=== PATIENT | male | born 1980 | race Two or more races ===

== ENCOUNTER 2017-01-14 15:33 | Inpatient (IN) | payer OTHER ==
[~2017-01-14] VITALS: Ht 185.4 cm; Wt 54.4 kg
--- NOTE | 2017-01-14 15:48 | NUR ---
PT AMBULATORY TO ER BED 12 C/O GENERALIZED WEAKNESS. NAUSEA AND DIARRHEA X 2 WEEKS NOW WORST TODAY. 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 AAOX3 GOWNED AND PLACED ON MONITOR. AWAITING MD CRENSHAW.
--- NOTE | 2017-01-14 15:55 | NUR ---
JAMEEL GORDILLO AT BEDSIDE FOR EVAL.
[2017-01-14] MEDS ORDERED: ONDANSETRON HCL/PF 4 MG/2 ML VIAL IVP ONE (16:00)
[2017-01-14] MEDS ORDERED: IBUPROFEN 600 MG TABLET PO ONE (16:00)
[2017-01-14] MEDS ORDERED: IV NS 0.9% 1,000 ML BAG IV ONE ×2 (16:00→17:00)
--- NOTE | 2017-01-14 16:01 | NUR ---
SKID WRAPPER AT BEDSIDE FOR BLOOD DRAW.
[2017-01-14] MEDS ORDERED: ACETAMINOPHEN ES 500 MG TABLET ONE (16:02)
[2017-01-14] MEDS ORDERED: IV NS 0.9% 1,000 ML ONE ×3 (16:02→19:23)
[2017-01-14] MEDS ORDERED: ONDANSETRON HCL/PF 4 MG/2 ML VIAL ONE (16:02)
[2017-01-14] MEDS ORDERED: IV SET PRIMARY 1 EA INFUS.SET MC ONE ×3 (16:02→19:23)
--- NOTE | 2017-01-14 16:13 | NUR ---
Britton funes in [facility] - 01/14/17 at 1724 by CINDI PT TO RADIOLOGY FOR ABDOMINAL CT SCAN VIA [facility].
[2017-01-14 16:18] LABS: BASOPHILS # (AUTO) 0.1 /CMM (0.0-0.2); BASOPHILS % (AUTO) 1.2 % (0.0-2.0); EOSINOPHILS % (AUTO) 0.1 % (0.0-6.0); LYMPHOCYTES # (AUTO) 0.2 /CMM (0.8-4.8); LYMPHOCYTES % (AUTO) 2.2 % (20.0-44.0); MEAN CORPUSCULAR HEMOGLOBIN 29 PG (26.0-33.0); MEAN CORPUSCULAR HGB CONC 34 g/dl (31.0-36.0); MEAN CORPUSCULAR VOLUME 87 fL (80-96); MONOCYTES # (AUTO) 0.1 /CMM (0.1-1.30); MONOCYTES % (AUTO) 0.8 % (2.0-12.0); NEUTROPHILS # (AUTO) 9.5 /CMM (1.8-8.9); NEUTROPHILS % (AUTO) 95.7 % (43.0-81.0); PLATELET COUNT (AUTO) 136 /CMM (150-450); RDW COEFFICIENT OF VARIATION 12.4 (11.5-15.0); RED BLOOD CELL COUNT(AUTO) 2.33 MIL/uL (4.5-6.0); WHITE BLOOD COUNT (AUTO) 9.9 K/uL (4.3-11.0)
[2017-01-14 16:19] LABS: HEMOGLOBIN 6.8 g/dL (13.5-17.5)
[2017-01-14 16:20] LABS: HEMATOCRIT 20 % (39-51)
[2017-01-14 16:29] LABS: INR 1.07 (0.87-1.13); PROTHROMBIN TIME 11.1 SECS (9.5-12.7)
[2017-01-14] MEDS ORDERED: ACETAMINOPHEN ES 500 MG TABLET PO ONE (16:30)
[2017-01-14 16:33] LABS: ALANINE AMINOTRANSFERASE 25 U/L (12-78); ALBUMIN 1.9 g/dL (3.4-5.0); ALKALINE PHOSPHATASE 108 U/L (46-116); ASPARTATE AMINOTRANSFERASE 35 U/L (15-37); BILIRUBIN,DIRECT 0.6 mg/dL (0.0-0.2); BILIRUBIN,TOTAL 1.1 mg/dL (0.2-1.0); CALCIUM, SERUM 7.8 mg/dL (8.5-10.1); CARBON DIOXIDE 19 mmol/L (21-32); CHLORIDE 97 mmol/L (98-107); CREATININE 4.9 mg/dL (0.6-1.3); GLUCOSE 335 mg/dL (74-106); SODIUM SERUM 131 mmol/L (136-145); TOTAL PROTEIN, SERUM 5.8 g/dL (6.4-8.2)
[2017-01-14 16:35] LABS: POTASSIUM 2.7 mmol/L (3.5-5.1); UREA NITROGEN, BLOOD 82 mg/dL (7-18)
[2017-01-14 16:45] LABS: BAND % (MANUAL) 7 % (0.0-5.0); LYMPHOCYTES % (MANUAL) 8 % (16-48); MONOCYTES % (MANUAL) 2 % (0-11.0); NEUTROPHILS % (MANUAL) 83 (42-76)
[2017-01-14 16:51] LABS: APPEARANCE,URINE Turbid (CLEAR); BILIRUBIN,URINE Negative (NEGATIVE); BLOOD, URINE Moderate Ery/uL (NEGATIVE); COLOR,URINE Yellow (YELLOW); KETONES,URINE Negative (NEGATIVE); LEUKOCYTE ESTERASE ,URINE Large (NEGATIVE); NITRITE, URINE Negative (NEGATIVE); PH,URINE 5.5 (5.0-8.0); PROTEIN,URINE 100 mg/dl (NEGATIVE); UGLUCOSE Negative (NEGATIVE); UROBILINOGEN,URINE 0.2 EU/dL (0.2)
[2017-01-14 17:02] LABS: BACTERIA,URINE Many /HPF (None Seen); RBC,URINE 21-50 /HPF (0-2); SQUAMOUS EPITHELIAL CELL,UR Many /HPF (None Seen); WBC,URINE TOO NUMEROUS TO COUN /HPF (0-3)
[2017-01-14] MEDS ORDERED: IV SET PRIMARY PUMP SET 1 EA INFUS.SET MC ONE ×3 (17:03→20:00)
[2017-01-14] MEDS ORDERED: POTASSIUM CL. PREMIX PERIPHER. 100 ML ONE (17:03)
--- NOTE | 2017-01-14 17:03 | NUR ---
PT GETTING CLEANED UP & USING RESTROOM BEFORE CT SCAN.
[2017-01-14] MEDS: POTASSIUM CL. PREMIX PERIPHER. 50 ML IV SCH ×2 (17:15→20:44)
--- NOTE | 2017-01-14 17:24 | NUR ---
PT TO RADIOLOGY FOR ABDOMINAL CT SCAN VIA [facility].
[2017-01-14] MEDS ORDERED: METRONIDAZOLE 500MG/ NS 100ML 100 ML IV ONE ×3 (17:30→21:50)
[2017-01-14] MEDS ORDERED: LEVOFLOXACIN 750 MG /D5W 150ML 150 ML IV ONE ×2 (17:30→17:37)
[2017-01-14] MEDS ORDERED: LIDOCAINE 2% JEL UROJET 10 ML MM ONE (18:19)
--- NOTE | 2017-01-14 18:34 | NUR ---
REPORT GIVEN TO DAINA CRAIN. PT AWAITING TRNASFER TO FLOOR.
--- NOTE | 2017-01-14 18:42 | NUR ---
PATIENT HAS [employer] [employer] INSURANCE PER [employer]
--- NOTE | 2017-01-14 18:49 | NUR ---
CALLED DR WHITE/ STRAP MACHINE OPERATOR IS [facility].
--- NOTE | 2017-01-14 19:02 | NUR ---
UNABLE TO INSERT F/C. PT IS HAVING A LOT OF PAIN STATING HE ONLY HAS MADRIGAL CATH AFTER SURGERY. DR INGRAM AWARE.
[2017-01-14] MEDS ORDERED: IV NS 0.9% 1,000 ML BAG IV PRN (19:30)
[2017-01-14 20:00] VITALS: BP 106/55
--- NOTE | 2017-01-14 20:00 | NUR ---
CRUZ RN INITIAL NOTE RECEIVED PT FROM ER VIA [facility]. NO ACUTE DISTRESS NOTED. PT A/O X4 AND ABLE TO MAKE NEEDS KNOWN. C/O OF SLIGHT PAIN 5/10 TO LOWER ABDOMEN. MOTRIN AND TYLENOL GIVEN IN ER. NO C/O OF NAUSEA,DIARRHEA OR VOMIT AT THIS TIME. ON ROOM AIR AND SATING WELL AT 98%. VITAL SIGNS BP-106/55, P-78, T- 98.2, R- 18. BODY ASSESSMENT PERFORMED. LUNG AND HEART SOUNDS AUSCULTATED. S1 & S2 NOTED. LUNGS CLEAR BILATERALLY. TELE- SINUS RHYTHM 70'S WITH ELEVATED T-WAVE. IV SITES R #20, L #18 CLEAN DRY, INTACT, PATENT AND FLUSHING WELL WITH NO S/SX OF INFECTION NOTED AT THIS TIME. ALL SAFETY MEASURES IN PLACE. CALL LIGHT WITHIN EASY REACH AT ALL TIMES. INFORMED ADDY GOVEA MD INFORMED OF ADMISSION AND AWAITING ORDERS. WILL CONTINUE TO MONITOR.
[2017-01-14] MEDS ORDERED: SECONDARY IV SET 1 EA INFUS.SET MC ONE ×2 (20:01→20:25)
[2017-01-14 20:15] VITALS: BP 106/55
[2017-01-14] MEDS ORDERED: POTASSIUM CHLORIDE 20 MEQ TAB.PRT.SR PO STA (21:10)
[2017-01-14] MEDS: METRONIDAZOLE 500MG/ NS 100ML 500 MG in PREMIX 1 EA IV SCH (21:26)
[2017-01-14] MEDS ORDERED: ONDANSETRON HCL/PF 4 MG/2 ML VIAL IVP PRN (21:30)
[2017-01-14] MEDS ORDERED: LEVOFLOXACIN 500 MG /D5W 100ML 500 MG in PREMIX 1 EA IV SCH (21:30)
[2017-01-14] MEDS ORDERED: ZOLPIDEM TARTRATE 5 MG TABLET PO PRN (21:30)
[2017-01-14] MEDS ORDERED: Z GUARD REMEDY 2 OZ OINT TP PRN (21:30)
[2017-01-14] MEDS ORDERED: Potassium Chloride 40 MEQ in IV D5/ 0.9% NACL 1,000 ML IV PRN (21:30)
[2017-01-14] MEDS ORDERED: IV PREMIX D5 NS + KCL 1,000 ML IV ONE (21:51)
[2017-01-14] MEDS ORDERED: POTASSIUM CHLORIDE 20 MEQ TAB.PRT.SR PO ONE (22:04)
[2017-01-14] MEDS ORDERED: HYDROMORPHONE 1 MG/1 ML DISP.SYRIN ONE (22:20)
[2017-01-14] MEDS ORDERED: HYDROMORPHONE INJ 2 MG/ML DISP.SYRIN ONE (22:29)
[2017-01-14] MEDS: HYDROMORPHONE INJ 2 MG/ML DISP.SYRIN IV PRN (22:33)
[2017-01-14] MEDS ORDERED: BLOOD IV SET 1 EA INFUS.SET MC ONE (22:49)
[2017-01-14] MEDS ORDERED: IV NS 0.9% 250 ML IV ONE (22:49)
[2017-01-14] MEDS ORDERED: ACETAMINOPHEN 325 MG TABLET ONE (23:11)
[2017-01-14] MEDS: ACETAMINOPHEN 325 MG TABLET PO PRN (23:15)
[2017-01-14 23:27] VITALS: BP 83/27
[2017-01-14 23:42] VITALS: BP 94/36
[2017-01-15] VITALS (11 sets, daily range): BP systolic 94–125; BP diastolic 36–59
[2017-01-15] MEDS ORDERED: BLOOD IV SET 1 EA INFUS.SET MC ONE (02:37)
[2017-01-15] MEDS ORDERED: IV NS 0.9% 250 ML IV ONE (02:37)
[2017-01-15] MEDS ORDERED: HYDROMORPHONE INJ 2 MG/ML DISP.SYRIN ONE (03:42)
[2017-01-15] MEDS: HYDROMORPHONE INJ 2 MG/ML DISP.SYRIN IV PRN (03:53)
[2017-01-15] MEDS ORDERED: ACETAMINOPHEN 325 MG TABLET ONE (04:54)
[2017-01-15] MEDS: ACETAMINOPHEN 325 MG TABLET PO PRN (05:08)
[2017-01-15] MEDS: METRONIDAZOLE 500MG/ NS 100ML 500 MG in PREMIX 1 EA IV SCH ×2 (05:08→14:03)
[2017-01-15] MEDS ORDERED: SECONDARY IV SET 1 EA INFUS.SET MC ONE ×2 (05:09→10:09)
--- NOTE | 2017-01-15 07:18 | NUR ---
RN INITIAL NOTES: Rec'd pt on bed, A/O x3, not in any distress. Pt on room air, no SOB noted. On telemonitor, . Pt has 2 IV line access both patent & intact w/ no signs of infection/ infiltration noted: R hand G20, SL and L AC G18, PL w/ D5NS 1L + 40 meqs KCL x 150 cc/hr infusing well. Provided comfort & safety measures. Bed kept low & in locked pos. Call light placed w/in reach. Will continue to monitor.
--- NOTE | 2017-01-15 07:24 | NUR ---
CRUZ RN CLOSING NOTE PT WITH EPISODES OF FEVER THROUGHOUT THE SHIFT. COOLING MEASURES PERFORMED AND TYLENOL WAS GIVEN. 2 UNITS OF PRBC'S GIVEN DURING THE SHIFT. NO REACTION NOTED AND BLOOD WELL TOLERATED.LAST VITAL SIGNS TAKEN T- 99.6, BP- 107/44, P- 101, RA SATING AT 100% AND NO C/O PAIN AT THIS TIME. ALL DUE MEDS GIVEN ORDERED AND WELL TOLERATED. PAIN MANAGED THROUGHOUT THE SHIFT. PT REMAINED WELL HYDRATED AND ALL NEEDS ATTENDED TO PROMPTLY. CALL LIGHT WITHIN EASY REACH. WILL ENDORSE TO NEXT SHIFT FOR [facility].
[2017-01-15 08:45] LABS: EOSINOPHILS % (AUTO) 0.1 % (0.0-6.0); HEMATOCRIT 26 % (39-51); HEMOGLOBIN 8.6 g/dL (13.5-17.5); LYMPHOCYTES # (AUTO) 0.4 /CMM (0.8-4.8); LYMPHOCYTES % (AUTO) 2.2 % (20.0-44.0); MEAN CORPUSCULAR HEMOGLOBIN 30 PG (26.0-33.0); MEAN CORPUSCULAR HGB CONC 34 g/dl (31.0-36.0); MEAN CORPUSCULAR VOLUME 88 fL (80-96); MONOCYTES # (AUTO) 0.4 /CMM (0.1-1.30); MONOCYTES % (AUTO) 2.1 % (2.0-12.0); NEUTROPHILS # (AUTO) 16.3 /CMM (1.8-8.9); NEUTROPHILS % (AUTO) 95.6 % (43.0-81.0); PLATELET COUNT (AUTO) 110 /CMM (150-450); RDW COEFFICIENT OF VARIATION 13.1 (11.5-15.0); RED BLOOD CELL COUNT(AUTO) 2.88 MIL/uL (4.5-6.0)
--- NOTE | 2017-01-15 08:45 | NUR ---
RN NOTES: Mg 1.2 and K 4.[address] Angel w/ orders to give 4 gm of Mg IV and to give plain IVF of D5NS 1L x 150 cc/hr if the pt doesn't have episode of diarrhea, carried out.
[2017-01-15 08:57] LABS: ALANINE AMINOTRANSFERASE 53 U/L (12-78); ALBUMIN 1.7 g/dL (3.4-5.0); ALKALINE PHOSPHATASE 115 U/L (46-116); ASPARTATE AMINOTRANSFERASE 80 U/L (15-37); BILIRUBIN,TOTAL 2.6 mg/dL (0.2-1.0); CALCIUM, SERUM 7.4 mg/dL (8.5-10.1); CARBON DIOXIDE 17 mmol/L (21-32); CHLORIDE 101 mmol/L (98-107); CREATININE 4.5 mg/dL (0.6-1.3); GLUCOSE 104 mg/dL (74-106); PHOSPHORUS 1.6 mg/dL (2.5-4.9); POTASSIUM 4.3 mmol/L (3.5-5.1); SODIUM SERUM 131 mmol/L (136-145); TOTAL PROTEIN, SERUM 5.5 g/dL (6.4-8.2); UREA NITROGEN, BLOOD 73 mg/dL (7-18)
[2017-01-15 09:01] LABS: MAGNESIUM 1.2 mg/dL (1.8-2.4)
[2017-01-15 09:06] LABS: CHOLESTEROL 69 mg/dL (<200); LDL 35 mg/dL (0-99); TRIGLYCERIDES 157 mg/dL (30-150)
[2017-01-15 09:17] LABS: IRON, SERUM 10 ug/dl (50-175); TOTAL IRON BINDING CAPACITY 153 ug/dl (250-450)
[2017-01-15 09:21] LABS: HDL CHOLESTEROL < 10 mg/dL (40-60)
[2017-01-15] MEDS ORDERED: IV D5/ 0.9% NACL 1,000 ML IV PRN (10:00)
[2017-01-15] MEDS: Magnesium 1GM/D5W 100ML PREMIX 100 ML IV SCH ×4 (10:16→13:44)
--- NOTE | 2017-01-15 10:30 | NUR ---
RN NOTES: Stool sample sent to lab for occult blood & C.diff.
[2017-01-15 10:44] LABS: RETICULOCYTE COUNT 0.8 % (0.6-2.5)
--- NOTE | 2017-01-15 11:47 | NUR ---
RN NOTES: Pt seen & examined by Dr. Angel.
--- NOTE | 2017-01-15 12:00 | NUR ---
RN NOTES: Pt has fever, T 102. Cooling measures provided. Pt refused Tylenol medication. Risks explained but pt strongly refused. Dr. Angel made aware.
--- NOTE | 2017-01-15 13:00 | NUR ---
RN NOTES: Temp rechecked, 100`F. Continued giving cooling measures. Offered Tylenol but pt still refused.
[2017-01-15 15:31] LABS: OCCULT BLOOD STOOL NEGATIVE (NEGATIVE)
[2017-01-15] MEDS ORDERED: K PHOS NEUTRAL 250 MG TABLET PO ONE (16:30)
--- NOTE | 2017-01-15 17:07 | NUR ---
CHILD WELFARE DIRECTOR NOTES: Pt DC'd to [facility] due to insurance issues. Report given to PARAS Tadeo. Pt left the facility in guarded condition. Pt is A/O x3, able to make needs known, denies any pain. On telemonitor still ST/SR. Pt refused to take pictures of his healed scar on his left lateral body d/t severe weakness. Pt was picked up by [facility] EMT via [facility]. All belongings sent w/ pt.
[2017-01-15] MEDS ORDERED: LEVOFLOXACIN 250 MG /D5W 50 ML 250 MG in PREMIX 1 EA IV SCH (18:00)
[2017-01-17 04:13] LABS: CMV, IgG <0.60 U/mL (0.00-0.59); CMV, IgM <30.0 AU/mL (0.0-29.9)
== END 2017-01-15 17:10 | disposition short-term general hospital (02) | DRG 871 ==
LOC: ER 15:36 → TELE-TD 18:56 → TELE1 01-15 08:06
PROVIDERS: ADMIT Nurse Practitioner Acute Care; ATTEND Nurse Practitioner Acute Care
PROC: 30233N1 Transfusion of Nonautologous Red Blood Cells into Peripheral Vein, Percutaneous Approach (ICD-10-PCS; principal; 2017-01-14)
DX: A41.9 Sepsis, unspecified organism (principal); N17.0 Acute kidney failure with tubular necrosis; E87.1 Hypo-osmolality and hyponatremia; E87.2 Acidosis; N39.0 Urinary tract infection, site not specified; K92.2 Gastrointestinal hemorrhage, unspecified; A04.7 Enterocolitis due to Clostridium difficile; E88.09 Other disorders of plasma-protein metabolism, not elsewhere classified; D69.6 Thrombocytopenia, unspecified; E86.0 Dehydration; E87.6 Hypokalemia; F17.210 Nicotine dependence, cigarettes, uncomplicated; M47.9 Spondylosis, unspecified; Z88.0 Allergy status to penicillin; D64.9 Anemia, unspecified; R73.9 Hyperglycemia, unspecified; D72.825 Bandemia; N20.0 Calculus of kidney; B96.20 Unspecified Escherichia coli [E. coli] as the cause of diseases classified elsewhere; R31.9 Hematuria, unspecified; N28.1 Cyst of kidney, acquired
CPT/HCPCS: 36415; 71010-TC; 80048-TC; 80053-TC; 80061-TC; 80076-TC; 81000-TC; 82272-TC; 83540-TC; 83605-TC; 83735-TC; 84100-TC; 84443-TC; 85025-TC; 85045-TC; 85730-TC; 86644; 86645; 86850-TC; 86921-TC; 87040-TC; 87045-TC; 87081-TC; 87086-TC; 87186-TC; 87496; 87536; 89055; A4216; A4606; J1170; J1956; J2405; J3475; J3480; J3490; J7030; J7042; J7050; P9016-BL; Z7610